=== PATIENT | female | born 1990 | race Caucasian/White ===

== ENCOUNTER 2016-05-20 11:08 | Emergency (ER) | payer SELFPAY ==
[2016-05-20 11:34] VITALS: BP 110/65
--- NOTE | 2016-05-20 11:38 | ER Document Report ---
ED Medical Screen (RME) - General Stated Complaint: SORE THROAT,BODY ACHES,EAR PAIN Notes: Patient comes to the emergency room complaining of ear pain, sore throat, and chest congestion. No known fever. Symptoms have been ongoing for 2 days. Ibuprofen [id number] taken for symptoms. Patient states positive exposure to strep and flu. I have greeted and performed a rapid initial assessment of this patient. A comprehensive ED assessment and evaluation of the patient, analysis of test results and completion of the medical decision making process will be conducted by additional ED providers. TRAVEL OUTSIDE OF THE [place] IN LAST 30 DAYS: No - Related Data Allergies/Adverse Reactions: human papillomavirus vaccine, quadr [From GARDASIL] Allergy (Verified 05/20/16 11:35) latex [Latex] Allergy (Verified 05/20/16 11:35) Past Medical History Infectious Medical History: Denies: Hx MRSA - Immunizations Immunizations up to date: Yes Hx Diphtheria, Pertussis, Tetanus Vaccination: Yes Physical Exam - Vital signs Vitals: Temp Pulse Resp BP Pulse Ox 98.4 F 87 18 110/65 100 05/20/16 11:33 05/20/16 11:33 05/20/16 11:33 05/20/16 11:33 05/20/16 11:33 - Respiratory Notes: Nonproductive cough noted. Lungs clear to auscultation, no respiratory distress. Course - Vital Signs Vital signs: Temp Pulse Resp BP Pulse Ox 98.4 F 87 18 110/65 100 05/20/16 11:33 05/20/16 11:33 05/20/16 11:33 05/20/16 11:33 05/20/16 11:33
--- NOTE | 2016-05-20 13:58 | ER Document Report ---
HPI - HPI Patient complains to provider of: sore throat Onset: Yesterday Onset/Duration: Gradual Pain Level: 3 Context: 25-year-old female complaining of sore throat especially in the right side since yesterday. No fever but she's been taking Motrin. She has myalgias. Associated Symptoms: None Exacerbated by: Denies Relieved by: Denies - ROS ROS below otherwise negative: Yes Systems Reviewed and Negative: Yes All other systems reviewed and negative - REPRODUCTIVE Reproductive: DENIES: : - DERM Skin Color: Normal Past Medical History - General Information source: Patient - Social History Smoking Status: Current Every Day Smoker Chew tobacco use (# tins/day): No Frequency of alcohol use: None Drug Abuse: None Lives with: Family Family History: DM - Medical History Medical History: Negative Renal/ Medical History: Denies: Hx Peritoneal Dialysis Infectious Medical History: Denies: Hx MRSA Surgical Hx: Negative - Immunizations Immunizations up to date: Yes Hx Diphtheria, Pertussis, Tetanus Vaccination: Yes Vertical Provider Document - CONSTITUTIONAL Agree With Documented VS: Yes Exam Limitations: No Limitations - INFECTION CONTROL TRAVEL OUTSIDE OF THE [place] IN LAST 30 DAYS: No - HEENT HEENT: Normocephalic, Pharyngeal Erythema. negative: Conjuctival Injection, Pharyngeal Exudate, Tympanic Membrane Red, Tympanic Membrane Bulging - NECK Neck: Supple. negative: Lymphadenopathy-Left, Lymphadenopathy-Right - RESPIRATORY Respiratory: Breath Sounds Normal, No Respiratory Distress O2 Sat by Pulse Oximetry: 100 - CARDIOVASCULAR Cardiovascular: Regular Rate, Regular Rhythm - GI/ABDOMEN Gastrointestinal: Abdomen Soft, Abdomen Non-Tender, No Organomegaly - MUSCULOSKELETAL/EXTREMETIES Musculoskeletal/Extremeties: PEDRO DEJESUS - NEURO Level of Consciousness: Awake, Alert - DERM Integumentary: Warm, Dry, No Rash Course - Re-evaluation Re-evalutation: 05/20/16 14:43 Rapid strep is negative - Vital Signs Vital signs: Temp Pulse Resp BP Pulse Ox 98.4 F 87 18 110/65 100 05/20/16 11:33 05/20/16 11:33 05/20/16 11:33 05/20/16 11:33 05/20/16 11:33 Discharge - Discharge Clinical Impression: viral ulcer, Sore throat Condition: Good Disposition: HOME, SELF-CARE Instructions: Sore Throat ([facility]) Additional Instructions: chloraseptic spray for pain over the counter motrin and tylenol to er if worse Throat culture is pending Please complete the patient satisfaction survey if you get one, and return it.. If you do not receive a survey, then you can go to the [facility] website, [email or web address] and place your comments about your very good care. Thank you very much. It was a pleasure being your medical provider today. Forms: Return to Work
== END 2016-05-20 14:53 | disposition home or self-care (01) ==
LOC: ER 11:08
DX: J02.9 Acute pharyngitis, unspecified (principal); J39.2 Other diseases of pharynx; F17.200 Nicotine dependence, unspecified, uncomplicated
CPT/HCPCS: 87070; 87804; 87880; 99283

== ENCOUNTER 2016-07-22 08:56 | Emergency (ER) | payer SELFPAY ==
[2016-07-22 09:05] VITALS: BP 115/55
[2016-07-22] MEDS ORDERED: ERYTHROMYCIN 0.5% OPH OINTMENT 3.5 GM (ER DISP) OD PRN (10:04)
--- NOTE | 2016-07-22 10:06 | ER Document Report ---
HPI - HPI Patient complains to provider of: right eye swelling Onset: This morning Onset/Duration: Sudden Quality of pain: Throbbing Severity: Moderate Pain Level: 4 Context: Patient states she started feeling some discomfort in her right upper lid yesterday. Woke up this morning with slight redness and swelling to right upper eyelid. No drainage. Associated Symptoms: None Exacerbated by: Denies Relieved by: Denies Similar symptoms previously: Yes Recently seen / treated by doctor: No - ROS ROS below otherwise negative: Yes Systems Reviewed and Negative: Yes All other systems reviewed and negative - CONSTITUTIONAL Constitutional: DENIES: Fever - EENT EENT: REPORTS: Eye problems - Right. DENIES: Congestion - NEURO Neurology: DENIES: Headache - CARDIOVASCULAR Cardiovascular: DENIES: Chest pain - RESPIRATORY Respiratory: DENIES: Trouble Breathing - GASTROINTESTINAL Gastrointestinal: DENIES: Abdominal Pain - URINARY Urinary: DENIES: Dysuria - REPRODUCTIVE Reproductive: DENIES: : - MUSCULOSKELETAL Musculoskeletal: DENIES: Extremity pain - DERM Skin Color: Normal Skin Problems: Rash Past Medical History - General Information source: Patient - Social History Smoking Status: Current Every Day Smoker Cigarette use (# per day): Yes Frequency of alcohol use: Occasional Drug Abuse: None Lives with: Family Family History: DM Patient has suicidal ideation: No Patient has homicidal ideation: No - Medical History Medical History: Negative Infectious Medical History: Denies: Hx MRSA Surgical Hx: Negative - Immunizations Immunizations up to date: Yes Hx Diphtheria, Pertussis, Tetanus Vaccination: Yes Vertical Provider Document - CONSTITUTIONAL Agree With Documented VS: Yes Exam Limitations: No Limitations General Appearance: WD/WN, No Apparent Distress - INFECTION CONTROL TRAVEL OUTSIDE OF THE [place] IN LAST 30 DAYS: No - HEENT HEENT: Atraumatic, Normocephalic. negative: Conjuctival Injection Notes: Mild erythema and edema noted to right lateral upper eyelid. Sclera noninjected , no drainage. Small pustule noted underneath upper lateral eyelid. - RESPIRATORY Respiratory: Breath Sounds Normal, No Respiratory Distress O2 Sat by Pulse Oximetry: 100 - CARDIOVASCULAR Cardiovascular: Regular Rate, Regular Rhythm - MUSCULOSKELETAL/EXTREMETIES Musculoskeletal/Extremeties: PEDRO DEJESUS - NEURO Level of Consciousness: Awake, Alert, Appropriate - DERM Integumentary: Warm, Dry Course - Vital Signs Vital signs: Temp Pulse Resp BP Pulse Ox 98.1 F 80 16 115/55 L 100 07/22/16 09:03 07/22/16 09:03 07/22/16 09:03 07/22/16 09:03 07/22/16 09:03 Discharge - Discharge Clinical Impression: Hordeolum internum of right upper eyelid Condition: Good Disposition: HOME, SELF-CARE Instructions: Eyedrop Use ([facility]) Additional Instructions: Use antibiotic eye ointment as instructed Warm compresses OTC Benadryl for any itching Follow-up with your eye doctor or primary care physician for recheck. And as needed Forms: Return to Work
== END 2016-07-22 10:32 | disposition home or self-care (01) ==
LOC: ER 08:56
DX: H00.021 Hordeolum internum right upper eyelid (principal); R22.0 Localized swelling, mass and lump, head; F17.210 Nicotine dependence, cigarettes, uncomplicated
CPT/HCPCS: 99283

== ENCOUNTER 2017-06-20 21:56 | Emergency (ER) | payer SELFPAY ==
[2017-06-20] MEDS ORDERED: CLINDAMYCIN HCL 150 MG CAPSULE PO ONE (23:21)
--- NOTE | 2017-06-20 23:30 | ER Document Report ---
HPI - HPI Pain Level: 2 Context: Patient is a 26-year-old female who presents emergency department the chief complaint of gum and tooth pain. Patient states that it started on Monday. Patient states that she started taking leftover prescription of clindamycin from previous dental infection and that helped soothe her symptoms but she ran out today. Patient denies any fevers, chills, swelling, difficulty breathing or difficulty swallowing. Patient states that she plans on following up with the [facility] however she is to wait until Monday to schedule an appointment. She denies any allergies. - REPRODUCTIVE Reproductive: DENIES: : Past Medical History - Social History Smoking Status: Current Every Day Smoker Family History: DM Renal/ Medical History: Denies: Hx Peritoneal Dialysis Infectious Medical History: Denies: Hx MRSA - Immunizations Immunizations up to date: Yes Hx Diphtheria, Pertussis, Tetanus Vaccination: Yes Vertical Provider Document - CONSTITUTIONAL Agree With Documented VS: Yes Notes: PHYSICAL EXAM GENERAL: Alert, interacts well. HEENT: NCAT, gingival inflammation over teeth 8 and 9 without any evidence of abscess. MMM, Uvula midline. Airway patent. No evidence of tonsillar enlargement, peritonsillar abscess, retropharyngeal abscess. NECK: Full range of motion. Supple. Trachea midline. LUNGS: Clear to auscultation bilaterally, no wheezes, rales, or rhonchi. No respiratory distress. HEART: Regular rate and rhythm. No murmurs, gallops, or rubs. NEUROLOGICAL: Alert and oriented x4. Normal speech. PSYCH: Normal affect, normal mood. SKIN: Warm, dry, normal turgor. No rashes or lesions noted. - INFECTION CONTROL TRAVEL OUTSIDE OF THE [place] IN LAST 30 DAYS: No Course - Re-evaluation Re-evalutation: Presentation is most consistent with likely an infected tooth. Airway is patent. Vitals within normal limits. Patient is able swallow without any difficulty. There is no significant facial swelling. Patient will be started on antibiotics. I've instructed to follow-up with dentistry as earliest ability for definitive management. Return precautions and follow-up recommendations have been discussed at length. - Vital Signs Vital signs: Temp Pulse Resp BP Pulse Ox 97.6 F 68 16 114/70 100 06/20/17 22:09 06/20/17 22:09 06/20/17 22:09 06/20/17 22:09 06/20/17 22:09 Discharge - Discharge Clinical Impression: Pain, dental Condition: Good Disposition: HOME, SELF-CARE Instructions: [facility], Clindamycin ([facility]), Toothache ([facility]) Prescriptions: Clindamycin HCl 450 mg PO TID 7 Days capsule
[2017-06-20 23:34] VITALS: BP 110/65
== END 2017-06-20 23:37 | disposition home or self-care (01) ==
LOC: ER 21:56
DX: K08.9 Disorder of teeth and supporting structures, unspecified (principal); F17.200 Nicotine dependence, unspecified, uncomplicated
CPT/HCPCS: 99282

== ENCOUNTER 2018-06-05 16:35 | Emergency (ER) | payer SELFPAY ==
--- NOTE | 2018-06-05 18:05 | ER Document Report ---
HPI - HPI Patient complains to provider of: left shoulder pain Time Seen by Provider: 06/05/18 17:43 Onset: Yesterday Onset/Duration: Sudden Severity: Moderate Pain Level: 3 Context: Patient presents emergency department with complaints of left shoulder pain. Reports she woke up yesterday and her shoulder was hurting. She reports she woke up today and noticed her left hand was swollen. Patient is right-hand dominant. 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 Denies trauma. Denies other symptoms such as fever vomiting diarrhea. Associated Symptoms: None Exacerbated by: Denies Relieved by: Denies Similar symptoms previously: No Recently seen / treated by doctor: No - REPRODUCTIVE Reproductive: DENIES: : Past Medical History - General Information source: Patient Last Menstrual Period: 05/26/18 - Social History Smoking Status: Current Every Day Smoker Cigarette use (# per day): Yes Frequency of alcohol use: None Drug Abuse: None Occupation: [employer] Family History: DM Patient has suicidal ideation: No Patient has homicidal ideation: No - Medical History Medical History: Negative Renal/ Medical History: Denies: Hx Peritoneal Dialysis Infectious Medical History: Denies: Hx MRSA Surgical Hx: Negative - Immunizations Immunizations up to date: Yes Hx Diphtheria, Pertussis, Tetanus Vaccination: Yes Vertical Provider Document - CONSTITUTIONAL Agree With Documented VS: Yes Exam Limitations: No Limitations General Appearance: WD/WN, No Apparent Distress - INFECTION CONTROL TRAVEL OUTSIDE OF THE [place] IN LAST 30 DAYS: No - HEENT HEENT: Atraumatic, Normocephalic - NECK Neck: Normal Inspection, Supple. negative: Lymphadenopathy-Left, Lymphadenopathy-Right - RESPIRATORY Respiratory: No Respiratory Distress - CARDIOVASCULAR Cardiovascular: Regular Rate - MUSCULOSKELETAL/EXTREMETIES Musculoskeletal/Extremeties: MAEW, FROM, Tender - Left shoulder tender to palpation, strong lunchroom monitor no weakness, +6 full range of motion-supine to prone without problems, good cap refill good radial pulse. - NEURO Level of Consciousness: Awake, Alert, Appropriate Motor/Sensory: No Motor Deficit - DERM Integumentary: Warm, Dry Adult Front & Back Diagram: 1 - Reports pain Course - Re-evaluation Re-evalutation: 06/05/18 18:34 Shoulder x-ray negative. 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 Will treat patient with ibuprofen ice elevation and rest. Patient informed of plan of care discharged home. - Vital Signs Vital signs: Temp Pulse Resp BP Pulse Ox 98.4 F 63 16 105/63 100 06/05/18 16:55 06/05/18 16:55 06/05/18 16:55 06/05/18 16:55 06/05/18 16:55 - Diagnostic Test Radiology reviewed: Image reviewed, Reports reviewed - neg Discharge - Discharge Clinical Impression: Left shoulder pain Qualifiers: Chronicity: acute Qualified Code(s): M25.512 - Pain in left shoulder Condition: Stable Disposition: HOME, SELF-CARE Instructions: Use of [id number] Ibuprofen ([facility]), Ice & Elevation ([facility]) Additional Instructions: *You have been evaluated for shoulder pain *Rest/Ice/Elevate your shoulder *Take ibuprofen as indicated *Follow up with orthopedics within on week for continued pain *Return to ED for worsening condition, changes, needs Forms: Return to Work Referrals: [facility] [Provider Group] - Follow up in 3-5 days
--- NOTE | 2018-06-05 18:11 | RADIOLOGY REPORT (SQ) ---
EXAM DESCRIPTION: SHOULDER LEFT 2 OR MORE VIEWS COMPLETED DATE/TIME: 06/05/2018 6:00 pm REASON FOR STUDY: shoulder pain COMPARISON: None. NUMBER OF VIEWS: Three views. TECHNIQUE: Internal rotation, external rotation, and Y view images acquired of the left shoulder. LIMITATIONS: None. FINDINGS: MINERALIZATION: Normal. BONES: No acute fracture or dislocation. No worrisome bone lesions. JOINTS: No dislocation. VISUALIZED LUNGS AND RIBS: No pneumothorax. No rib fracture. SOFT TISSUES: No radiopaque foreign body. OTHER: No other significant finding. IMPRESSION: NEGATIVE STUDY OF THE LEFT SHOULDER. NO RADIOGRAPHIC EVIDENCE OF ACUTE INJURY. TECHNICAL DOCUMENTATION: JOB ID: [id number] [employer]- All Rights Reserved Reading location - IP/workstation name: [email or web address]
[2018-06-05 18:58] VITALS: BP 116/65
== END 2018-06-05 18:54 | disposition home or self-care (01) ==
LOC: ER 16:35
DX: M25.512 Pain in left shoulder (principal); F17.210 Nicotine dependence, cigarettes, uncomplicated
CPT/HCPCS: 99283

== ENCOUNTER 2019-03-02 12:03 | Emergency (ER) | payer OTHER ==
[2019-03-02] MEDS ORDERED: ACETAMINOPHEN 325 MG TABLET PO ONE (12:33)
[2019-03-02] MEDS ORDERED: IBUPROFEN 600 MG TABLET PO ONE (12:33)
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
[2019-03-02 14:33] VITALS: BP 120/72
== END 2019-03-02 14:32 | disposition home or self-care (01) ==
LOC: ER 12:03
DX: M54.2 Cervicalgia (principal); M79.605 Pain in left leg; M54.5 Low back pain; M79.652 Pain in left thigh; M54.9 Dorsalgia, unspecified; V87.7XXA Person injured in collision between other specified motor vehicles (traffic), initial encounter
CPT/HCPCS: 99284; 73552; 72110; 72125; L0120

== ENCOUNTER 2020-01-13 13:10 | Emergency (ER) | payer OTHER ==
[2020-01-13] MEDS ORDERED: DIPH/PERTUSS(ACELL)/TETANUS VAC/PF 0.5 ML SYR (>=10YO) IM ONE (13:51)
[2020-01-13] MEDS ORDERED: IBUPROFEN 600 MG TABLET PO ONE (13:51)
--- NOTE | 2020-01-13 13:54 | ER Document Report ---
ED Medical Screen (RME) - General Chief Complaint: Laceration Stated Complaint: FINGER LACERATION Time Seen by Provider: 01/13/20 13:51 Mode of Arrival: Ambulatory Information source: Patient Notes: 29-year-old female presented to ED for a very deep laceration to the left index finger. It was actively bleeding when she came in and there was a dressing on it. When I removed the dressing it started bleeding profusely again. I have put a pressure dressing on the finger. She will need x-rays tetanus ibuprofen and sutures. I have ordered the tetanus and the ibuprofen which she will get n ow I have ordered x-ray which she will get and then she will need another provider to suture of her finger. I have greeted and performed a rapid initial assessment of this patient. A comprehensive ED assessment and evaluation of the patient, analysis of test results and completion of medical decision making process will be conducted by an additional ED providers. TRAVEL OUTSIDE OF THE [place] IN LAST 30 DAYS: No - Related Data Allergies/Adverse Reactions: human papillomavirus vaccine, quadr [From GARDASIL] Allergy (Verified 06/05/18 16:38) Past Medical History Renal/ Medical History: Denies: Hx Peritoneal Dialysis Infectious Medical History: Denies: Hx MRSA - Immunizations Immunizations up to date: Yes Hx Diphtheria, Pertussis, Tetanus Vaccination: Yes Physical Exam - Vital signs Vitals: Temp Pulse Resp BP Pulse Ox 98.3 F 73 18 113/64 100 01/13/20 13:30 01/13/20 13:30 01/13/20 13:30 01/13/20 13:30 01/13/20 13:30 Course - Vital Signs Vital signs: Temp Pulse Resp BP Pulse Ox 98.3 F 73 18 113/64 100 01/13/20 13:30 01/13/20 13:30 01/13/20 13:30 01/13/20 13:30 01/13/20 13:30
--- NOTE | 2020-01-13 14:34 | RADIOLOGY REPORT (SQ) ---
EXAM DESCRIPTION: FINGER RIGHT IMAGES COMPLETED DATE/TIME: 01/13/2020 2:15 pm REASON FOR STUDY: Laceration right index finger COMPARISON: None. NUMBER OF VIEWS: Three views. TECHNIQUE: AP, lateral, and oblique images acquired of the right second finger. LIMITATIONS: None. FINDINGS: MINERALIZATION: Normal. BONES: No acute fracture or dislocation. No worrisome bone lesions. SOFT TISSUES: There is a bandage on the 2nd digit. OTHER: No other significant finding. IMPRESSION: Laceration by history. No osseous finding. COMMENT: SITE OF TRAUMA/COMPLAINT MARKED/STAMP COMPLETED: Yes TECHNICAL DOCUMENTATION: JOB ID: [id number] 2010 [employer]- All Rights Reserved Reading location - IP/workstation name: [email or web address]
[2020-01-13] MEDS ORDERED: BUPIVACAINE HCL 0.5 % INJ/PF 30 ML SDV INJ ONE (20:27)
[2020-01-13] MEDS ORDERED: LIDOCAINE 1%/EPINEPHRINE INJ 20 ML VIAL INJ ONE (20:27)
[2020-01-13] MEDS ORDERED: LIDOCAINE 1% INJ (10 MG/ML) 10 ML MDV INJ ONE (20:27)
--- NOTE | 2020-01-13 20:28 | ER Document Report ---
ED Wound - General Chief Complaint: Laceration Stated Complaint: FINGER LACERATION Time Seen by Provider: 01/13/20 13:51 Mode of Arrival: Ambulatory Notes: Patient is a 29-year-old female that comes to the emergency department for chief complaint of laceration to the right index finger. Patient was using a meat trimmer, she states she did not have a guard, she states this caused a large flap to the side of the right index finger. This happened just prior to arrival. She reports the area was bleeding heavily. She denies any other complaints. Tetanus is not up-to-date within 5 years. She denies any daily medications, denies . TRAVEL OUTSIDE OF THE [place] IN LAST 30 DAYS: No - Related Data Allergies/Adverse Reactions: human papillomavirus vaccine, quadr [From GARDASIL] Allergy (Verified 06/05/18 16:38) Past Medical History - General Information source: Patient - Social History Smoking Status: Never Smoker Frequency of alcohol use: None Drug Abuse: None Lives with: Family Family History: DM Renal/ Medical History: Denies: Hx Peritoneal Dialysis Infectious Medical History: Denies: Hx MRSA Surgical Hx: Negative - Immunizations Immunizations up to date: Yes Hx Diphtheria, Pertussis, Tetanus Vaccination: Yes Review of Systems - Review of Systems Constitutional: No symptoms reported EENT: No symptoms reported Cardiovascular: No symptoms reported Respiratory: No symptoms reported Gastrointestinal: No symptoms reported Genitourinary: No symptoms reported Female Genitourinary: No symptoms reported Musculoskeletal: See HPI Skin: See HPI Hematologic/Lymphatic: No symptoms reported Neurological/Psychological: No symptoms reported Physical Exam - Vital signs Vitals: Temp Pulse Resp BP Pulse Ox 98.3 F 73 18 113/64 100 01/13/20 13:30 01/13/20 13:30 01/13/20 13:30 01/13/20 13:30 01/13/20 13:30 - Notes Notes: GENERAL: Alert, interactive, anxious but not in distress HEAD: Normocephalic, atraumatic. EYES: Pupils equal, round, and reactive to light. Extraocular movements intact. ENT: Oral mucosa moist, tongue midline. Oropharynx unremarkable. Airway patent. LUNGS: Clear to auscultation bilaterally, no wheezes, rales, or rhonchi. No respiratory distress. Non-tender chest wall. HEART: Regular rate and rhythm. No murmur EXTREMITIES: There is very heavy bleeding from a large flap laceration over the palmar aspect of the right index finger distally including the DIP and extending up towards the the finger pad. Full range of motion intact, normal strength against flexion and extension with resistance, normal capillary refill and sensation. Hand and upper extremity evaluation unremarkable otherwise. NEUROLOGICAL: Alert and oriented x3. Normal speech. Cranial nerves II through XII grossly intact. Strength 5/5 in all extremities. PSYCH: Moderately anxious SKIN: Warm, dry, normal turgor. No rashes or lesions noted. See extremity note Course - Re-evaluation Re-evalutation: Patient with a flap laceration with what appears to be an exposed arteriole bed with spurting from the wound. This was in the location of subcutaneous tissue, I injected less than 1 cc of lidocaine with epinephrine into the area and then this did almost completely stop bleeding to the point where I was able to clean, carefully examine, and then close the rest of the wound. Discussed with Dr. Crawley. X-ray reviewed and unremarkable. Patient with no noted tendon or nerve injury, normal strength and sensation, no other concerning findings. After repair the slightly dusky tissue from the large flap did start to have good coloration again fortunately. I discussed care, placed on prophylactic antibiotic, discussed follow-up, discussed return precautions. Patient states appreciation and agreement. - Vital Signs Vital signs: Temp Pulse Resp BP Pulse Ox 98.6 F 76 14 106/75 100 01/13/20 22:00 01/13/20 22:00 01/13/20 22:00 01/13/20 22:00 01/13/20 22:00 Procedures - Laceration/Wound Repair Right index finger Wound length (cm): 4 Wound's Depth, Shape: Irregular, Flap Laceration pre-procedure: Sterile PPE donned, Sterile drapes applied, Shur-Clens applied Anesthetic type: Other - 0.5% bupivacaine and 1% lidocaine for a total of 4 ml, digital block with excellent anesthesia and no noted complications Wound explored: Clean, No foreign body removed Wound Repaired With: Sutures Suture Size/Type: 5:0, Ethilon Number of Sutures: 12 Layer Closure?: No Post-procedure wound care: Sterile dressing applied Post-procedure NV exam normal: Yes Complications: No Discharge - Discharge Clinical Impression: Finger laceration Qualifiers: Encounter type: initial encounter Finger: index finger Damage to nail status: without damage Foreign body presence: without foreign body Laterality: right Qualified Code(s): S61.210A - Laceration without foreign body of right index finger without damage to nail, initial encounter Condition: Stable Disposition: HOME, SELF-CARE Additional Instructions: The x-ray was normal. The laceration has been repaired with sutures. These need to be removed in approximately 7 to 10 days. Keep the area clean, clean with soap and water, dab dry. Keep topical antibiotic dressing over the area. Take the antibiotic as prescribed. You can take Tylenol and ibuprofen together if needed for pain. Return if you develop any concerning symptoms including pain, developing or spreading redness or swelling, discolored discharge, fever, or any other concerning symptoms. Prescriptions: Cephalexin Monohydrate [Keflex 500 mg Capsule] 500 mg PO TID 5 Days #15 capsule Forms: Return to Work
[2020-01-13] MEDS ORDERED: CEPHALEXIN 500 MG CAPSULE PO ONE (22:01)
[2020-01-13 22:15] VITALS: BP 106/75
== END 2020-01-13 22:19 | disposition home or self-care (01) ==
LOC: ER 13:10
DX: S61.210A Laceration without foreign body of right index finger without damage to nail, initial encounter (principal); W45.8XXA Other foreign body or object entering through skin, initial encounter; Y93.G9 Activity, other involving cooking and grilling; Y99.0 Civilian activity done for income or pay; Z23 Encounter for immunization; Z88.7 Allergy status to serum and vaccine
CPT/HCPCS: 99283; 73140; 90715; 12002; J3490 ×2